=== PATIENT | male | born 1980 | race American Indian/Alaskan Native ===

== ENCOUNTER 2018-08-31 11:52 | Emergency (ER) | payer OTHER ==
[2018-08-31 11:59] VITALS: BP 155/103
[2018-08-31] MEDS ORDERED: DELTASONE PO ONE (12:10)
[2018-08-31] MEDS ORDERED: TORADOL IM ONE (12:10)
--- NOTE | 2018-08-31 12:38 | Emergency Department Report ---
ED Upper Extremity Inj HPI - General Chief Complaint: Shoulder Injury Stated Complaint: BOTH SHOULDERS/EXTREME PAIN Time Seen by Provider: 08/31/18 12:06 Source: patient Mode of arrival: Ambulatory Limitations: No Limitations - History of Present Illness Initial Comments: This is a 38-year-old male nontoxic, well nourished in appearance, no acute signs of distress presents to the ED with c/o of intermittent bilateral shoulder pain 1 year. 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 Patient denies any trauma. Patient stated he seen a PCP and was referred to get xrays for this. Patient stated went to [facility] and has received x-rays but was not told anything was abnormal. Patient denies any numbness, tingling, fever, chills, nausea, vomiting, chest pain, shortness of breath, headache, stiff neck. Patient denies any joint swelling or joint redness. Patient states that he has some decreased range of motion with pain. Patient denies any allergies. MD Complaint: Injury to:: left, right, shoulder -: year(s) (1) Other Extremity Injury: Shoulder: Left, Right Other Injuries: none Place: work Severity scale (0 -10): 8 Improves With: rest Worsens With: movement of extremity Associated Symptoms: denies other symptoms. denies: weakness, numbness, neck pain, suspects foreign body, nausea/vomiting, heard/felt popping sensat - Related Data Previous Rx's Medication Instructions Recorded Last Taken Type Cyclobenzaprine [Flexeril] 10 mg PO QHS PRN #10 tablet 08/31/18 Unknown Rx Ibuprofen [Motrin] 600 mg PO Q8H PRN #20 tablet 08/31/18 Unknown Rx Allergies Allergy/AdvReac Type Severity Reaction Status Date / Time No Known Allergies Allergy Unverified 08/31/18 11:59 ED Review of Systems ROS: Stated complaint: BOTH SHOULDERS/EXTREME PAIN Other details as noted in HPI Constitutional: denies: chills, fever Eyes: denies: eye pain, eye discharge, vision change ENT: denies: ear pain, throat pain Respiratory: denies: cough, shortness of breath, wheezing Cardiovascular: denies: chest pain, palpitations Endocrine: no symptoms reported Gastrointestinal: denies: abdominal pain, nausea, diarrhea Genitourinary: denies: urgency, dysuria Musculoskeletal: arthralgia. denies: back pain, joint swelling Skin: denies: rash, lesions Neurological: denies: headache, weakness, paresthesias Psychiatric: denies: anxiety, depression Hematological/Lymphatic: denies: easy bleeding, easy bruising ED Past Medical Hx - Past Medical History Previous Medical History?: Yes Hx Hypertension: Yes - Surgical History Past Surgical History?: No - Social History Smoking Status: Current Every Day Smoker Substance Use Type: None - Medications Home Medications: Home Medications Medication Instructions Recorded Confirmed Last Taken Type Cyclobenzaprine [Flexeril] 10 mg PO QHS PRN #10 tablet 08/31/18 Unknown Rx Ibuprofen [Motrin] 600 mg PO Q8H PRN #20 tablet 08/31/18 Unknown Rx ED Physical Exam - General Limitations: No Limitations General appearance: alert, in no apparent distress - Head Head exam: Present: atraumatic, normocephalic - Eye Eye exam: Present: normal appearance - Neck Neck exam: Present: normal inspection, full ROM. Absent: tenderness, meningismus - Extremities Exam Extremities exam: Present: normal inspection, full ROM, tenderness, normal capillary refill. Absent: joint swelling - Expanded Upper Extremity Exam Left General: Present: normal inspection Shoulder Exam: Present: normal inspection (bilateral exam), full ROM (bilateral exam), tenderness (bilateral exam). Absent: swelling, abrasion, laceration, ecchymosis, deformity, crepidus, dislocation, erythema, tenderness over AC joint Upper Arm exam: Present: normal inspection (bilateral exam), full ROM (bilateral exam). Absent: tenderness, swelling Elbow exam: Present: normal inspection (bilateral exam), full ROM (bilateral exam). Absent: tenderness Forearm Wrist exam: Present: normal inspection (bilateral exam), full ROM (bilateral exam). Absent: tenderness Hand Wrist exam: Present: normal inspection (bilateral exam), full ROM (bilateral exam). Absent: tenderness Vascular: Present: vascular compromise, normal capillary refill - Back Exam Back exam: Present: normal inspection, full ROM - Neurological Exam Neurological exam: Present: alert, oriented X3 - Psychiatric Psychiatric exam: Present: normal affect, normal mood - Skin Skin exam: Present: warm, dry, intact, normal color. Absent: rash ED Course Vital Signs 08/31/18 11:57 Temperature 98.0 F Pulse Rate 85 Respiratory 18 Rate Blood Pressure 155/103 O2 Sat by Pulse 99 Oximetry - Reevaluation(s) Reevaluation #1: 08/31/18 12:40 Patient is speaking in full sentences with no signs of distress noted. ED Medical Decision Making - Medical Decision Making This is a 38-year-old male that presents with bilateral shoulder strain. Patient is stable and was examined by me. I referred patient to an orthopedic doctor for further evaluation for possible MRI. As per Patient, X-ray has been obtained yesterday in [facility]. Patient does have normal ROM with some tenderness with no joint swelling. No ecchymosis. no joint redness or swelling. Not warm to touch. No signs of cellulites present. Patient was instructed to RICE therapy. Patient received Toradol and Prednisone for pain which he stated pain has relieved. Patient is discharged with Motrin. At time of discharge, the patient does not seem toxic or ill in appearance. No acute signs of distress noted. Patient agrees to discharge treatment plan of care. No further questions noted by the patient. Critical care attestation.: If time is entered above; I have spent that time in minutes in the direct care of this critically ill patient, excluding procedure time. ED Disposition Clinical Impression: Shoulder strain Qualifiers: Encounter type: initial encounter Laterality: unspecified laterality Qualified Code(s): S46.919A - Strain of unspecified muscle, fascia and tendon at shoulder and upper arm level, unspecified arm, initial encounter Disposition: TO HOME OR SELFCARE Is pt being admited?: No Does the pt Need Aspirin: No Condition: Stable Instructions: RICE Therapy (ED), Cyclobenzaprine (By mouth) Additional Instructions: Follow-up with a orthopedic doctor in 3-5 days or if symptoms worsen and continue return to emergency room as soon as possible. Take ibuprofen and Flexeril as prescribed. Do not operate heavy machinery while taking Flexeril due to sedation Prescriptions: Cyclobenzaprine [Flexeril] 10 mg PO QHS PRN #10 tablet PRN Reason: Muscle Spasm Ibuprofen [Motrin] 600 mg PO Q8H PRN #20 tablet PRN Reason: Pain Referrals: KYLE HERNDON MD [Primary Care Provider] - 3-5 Days PRIMARY [facility]ARE, [Referring] - 3-5 Days NANCY HO MD [Staff Physician] - 3-5 Days [facility] [Outside] - 3-5 Days Forms: Work/School Release Form(ED)
== END 2018-08-31 12:47 | disposition home or self-care (01) ==
LOC: ED 11:52
DX: S46.919A Strain of unspecified muscle, fascia and tendon at shoulder and upper arm level, unspecified arm, initial encounter (principal); F17.200 Nicotine dependence, unspecified, uncomplicated; I10 Essential (primary) hypertension
CPT/HCPCS: 96372; 99282; J1885; J7512

== ENCOUNTER 2020-06-02 18:36 | Emergency (ER) | payer SELFPAY ==
[2020-06-03] MEDS ORDERED: IBUPROFEN 800 MG TAB PO ONE (02:07)
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
[2020-06-03 03:39] VITALS: BP 140/98
== END 2020-06-03 02:18 | disposition home or self-care (01) ==
LOC: ED 18:36
DX: S39.012A Strain of muscle, fascia and tendon of lower back, initial encounter (principal); I10 Essential (primary) hypertension; Z79.899 Other long term (current) drug therapy; V49.49XA Driver injured in collision with other motor vehicles in traffic accident, initial encounter; Y93.89 Activity, other specified; Y92.488 Other paved roadways as the place of occurrence of the external cause; Y99.8 Other external cause status
CPT/HCPCS: 99282

== ENCOUNTER 2022-04-02 18:55 | Emergency (ER) | payer OTHER ==
[2022-04-02] MEDS ORDERED: amLODIPine 5 MG TAB PO ONE (23:07)
[2022-04-02] MEDS ORDERED: IBUPROFEN 600 MG TAB PO ONE (23:07)
[2022-04-02] MEDS ORDERED: ACETAMINOPHEN 500 MG TAB PO ONE (23:07)
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
[2022-04-03 01:03] VITALS: BP 176/112
--- NOTE | 2022-04-03 22:40 | Electrocardiograph Report ---
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
== END 2022-04-03 01:03 | disposition home or self-care (01) ==
LOC: ED 18:55
DX: R07.9 Chest pain, unspecified (principal); I10 Essential (primary) hypertension; Z76.0 Encounter for issue of repeat prescription; V89.2XXA Person injured in unspecified motor-vehicle accident, traffic, initial encounter; Y93.89 Activity, other specified; Y92.89 Other specified places as the place of occurrence of the external cause; Y99.8 Other external cause status; F17.200 Nicotine dependence, unspecified, uncomplicated
CPT/HCPCS: 71046; 93005; 99283